=== PATIENT | female | born 1990 | race African-American/Black ===

== ENCOUNTER 2017-01-04 16:47 | Emergency (ER) | payer MEDICAID ==
[~2017-01-04] VITALS: Ht 170.2 cm; Wt 59.0 kg
[2017-01-04 17:01] VITALS: BP 120/84
== END 2017-01-04 17:16 | disposition home or self-care (01) ==
LOC: EDBD 16:47 → ER 16:47
DX: S29.011A Strain of muscle and tendon of front wall of thorax, initial encounter (principal); X58.XXXA Exposure to other specified factors, initial encounter; Y93.89 Activity, other specified; Y92.89 Other specified places as the place of occurrence of the external cause; Y99.8 Other external cause status
CPT/HCPCS: 93005

== ENCOUNTER 2017-01-08 23:10 | Emergency (ER) | payer MEDICAID ==
[~2017-01-08] VITALS: Ht 160 cm; Wt 54.4 kg
[2017-01-09 01:08] LABS: Basophils # (auto) 0.2 uL; Basophils % (auto) 1.2 % (0.0-2.0); Eosinophils # (auto) 0.1 uL; Eosinophils % (auto) 0.6 % (0.0-7.0); Hematocrit 37.9 % (36.0-46.0); Hemoglobin 12.4 g/dL (12.2-16.2); Lymphocytes # (auto) 2.7 uL; Lymphocytes % (auto) 15.6 % (10.0-50.0); Mean Corpuscular Hemoglobin 28.7 pg (28.0-32.0); Mean Corpuscular Hgb Conc. 32.7 g/dL (32.0-36.0); Mean Corpuscular Volume 87.8 fL (80.0-100.0); Mean Platelet Volume 8.4 fL (6.9-10.8); Monocytes # (auto) 0.7 uL; Monocytes % (auto) 3.9 % (0.0-12.0); Neutrophils # (auto) 13.6 uL; Neutrophils % (auto) 78.7 % (37.0-80.0); Nucleated Red Blood Cells % 0.2 %; Platelet Count (auto) 285 10^3/uL (140-450); Red Cell Distribution Width 12.8 % (11.8-14.3); White Blood Cell 17.3 10^3/uL (4.4-10.8)
[2017-01-09 01:27] LABS: Acetaminophen < 2.0 ug/mL (10-30); Salicylate < 1.7 mg/dL (2.8-20.0)
[2017-01-09 01:29] LABS: Anion Gap 11 (5-15); Aspartate Aminotransferase 82 U/L (15-37); Blood Urea Nitrogen 18 mg/dL (7-18); Calcium 8.8 mg/dL (8.5-10.1); Carbon Dioxide 25 mmol/L (21-32); Chloride 101 mmol/L (98-107); GFR African American 124 mL/min; GFR Non-African American 103 mL/min; Glucose 85 mg/dL (74-106); Sodium 137 mmol/L (136-145)
[2017-01-09 01:31] LABS: Alkaline Phosphatase 103 U/L (45-117); Bilirubin, Total 0.8 mg/dL (0.2-1.0); Total Protein 8.7 g/dL (6.4-8.2)
[2017-01-09 01:58] LABS: Potassium 2.9 mmol/L (3.5-5.1)
[2017-01-09] MEDS ORDERED: POTASSIUM CHL 20 Meq TABLET PO ONE (02:15)
[2017-01-09 05:34] LABS: Urine Bilirubin Negative (Negative); Urine Blood Negative /uL (Negative); Urine Color Yellow (Yellow); Urine Glucose Normal (Normal); Urine Ketone 1+ (Negative); Urine Mucus FEW (None Seen); Urine Nitrite Negative (Negative); Urine RBC 15 /hpf (0 - 4); Urine Squamous Epithelial Cell FEW /hpf (<5)
[2017-01-09 06:29] VITALS: BP 129/73
== END 2017-01-09 06:05 | disposition home or self-care (01) ==
LOC: ER 23:12
DX: N39.0 Urinary tract infection, site not specified (principal); M54.2 Cervicalgia
CPT/HCPCS: 36415; 80053; 80307; 80320; 80329; 81001; 81025; 85025

== ENCOUNTER 2017-01-10 17:56 | Emergency (ER) | payer MEDICAID ==
[~2017-01-10] VITALS: Ht 160 cm; Wt 59.0 kg
[2017-01-10 19:00] VITALS: BP 105/70
[2017-01-10] MEDS ORDERED: SODIUM CHLORIDE 0.9% 1,000 ML IV ONE (20:00)
[2017-01-10] MEDS ORDERED: cefTRIAXone 1GM/50ML D5W 50 ML IV ONE (20:00)
== END 2017-01-10 22:31 | disposition home or self-care (01) ==
LOC: EDBD 17:56 → ER 18:02
DX: E86.0 Dehydration (principal); F15.10 Other stimulant abuse, uncomplicated; F20.9 Schizophrenia, unspecified; F31.9 Bipolar disorder, unspecified; Z59.0 Homelessness
CPT/HCPCS: 96365; 99284; J0696; J7030